=== PATIENT | male | born 2005 | race Caucasian/White ===

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

== ENCOUNTER 2025-09-08 21:52 | Emergency (ER) | payer SELFPAY ==
[2025-09-08 21:54] VITALS: BP 141/99; PULSE 80; RESP 16; TEMP 36.3; O2SAT 100
--- NOTE | 2025-09-08 22:00 | DI.CT_ITS ---
Exam(s) CT HEAD WO EXAM: CT HEAD WO CLINICAL HISTORY: visual hallucinations, fall yesterday. TECHNIQUE: Imaging Protocol: Axial computed tomography images with coronal and sagittal reformatted images were created and reviewed COMPARISON: CT CT HEAD CERV SPINE FACIAL WO from 11/10/2024 FINDINGS: There are no skull fractures. There is no fluid in the visualized paranasal sinuses. There is no evidence of intracranial hemorrhage, mass effect, or shift of midline structures. There are no extra-axial fluid collections. The ventricles are not enlarged or shifted and there is no blood within the ventricular system nor within the basal cisterns. IMPRESSION: No acute intracranial findings on this noninfused CT scan of the brain. RADIATION DOSE DELIVERED: 866.62mGy.cm Total DLP DATA REPOSITORY: All CT scans at this facility are submitted to the National Radiology Data Registry (NRDR) Dose Index Registry (DIR) with the [employer] (ACR). RADIATION OPTIMIZATION: All CT scans at this facility use at least one of these dose optimization techniques: automated exposure control; mA and/or kV adjustment per patient size (includes targeted exams where dose is matched to clinical indication); or iterative reconstruction.
--- NOTE | 2025-09-08 22:08 | ED.GENADUL_ITS ---
Discharge Plan Discharge Details Chief Complaint: PsychEval Clinical Impression: Visual hallucination, Depression with suicidal ideation Primary Care Provider: Jimy Headley ED Provider: Lucila Cheatham Home Meds and New Rx's Prescriptions: No Action escitalopram oxalate 20 mg tablet 10 mg PO DAILY HPI General Mode of arrival: ambulatory . Date/Time Provider Initiated Documentation: 09/08/25 21:52 . Limitations to Documentation: no limitations . Information obtained by: patient, family and old records reviewed . HPI Narrative: This is a 19-year-old male patient with a past medical history significant for anxiety and depression presenting for evaluation of visual hallucinations. The patient reports that he has had chronic suicidal ideations for the last several years, without any specific plan, intent, or history of attempts. 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 He states that he is hoping to get referred to a therapist or mental health provider, but has not yet been connected. Today, the patient reports that he was changing the baby's diaper, looked down at his hands, and thought that they were covered in blood. This was very distressing, he wondered if perhaps this could have been because he got a bloody nose or did not wash his hands, states that he tweaked out for a few moments and then realized that his hands were infected clean. During this event he did not have any situation where he heard voices or other noises that were not there, states that he has not ever had anything like this happen to him before, and the visual hallucinations are not persisting. The patient reports that he is sleeping normally as his partner does the nighttime feedings for their new baby. He states that yesterday he took a fall down some icy stairs, does not think he hit his head, did have some mild lower back pain which is much improved today. No recent fevers, chills, nor other localizing symptoms of illness. The patient vapes nicotine, denies alcohol or drug use. Related Data Home Medications ?Medication ?Instructions ?Recorded ?Confirmed escitalopram oxalate 20 mg tablet 10 mg PO DAILY 09/0809/08/25 Allergies Allergy/AdvReac Type Severity Reaction Status Date / Time chocolate AdvReac Intermediate Itching Verified 08/09/25 11:40 General Stated Complaint: PsychEval ESTELA: 3 Exam Narrative Exam Narrative: Gen: awake and alert, in no apparent distress. Appears well nourished. HEENT: PERRL, EOMs full and without nystagmus. External ears and nose normal, mucous membranes moist. Neck: Supple, full range of motion, no cervical spine tenderness or step-offs Lungs: No increased work of breathing, lung sounds clear and equal bilaterally without wheezes, rhonchi, or rales. CV: Heart with regular rate and rhythm, no murmurs auscultated. Strong and symmetrical radial pulses. Abdomen: Soft, nondistended MSK: No joint swelling, no redness. Full ROM without limitation, no external traumatic findings. No T or L-spine tenderness or step-offs Skin: No rashes or lesions to visualized skin. Normal color, warm, and dry. Neuro: Cranial nerves II-XII intact and symmetrical bilaterally. 5/5 strength in all muscle groups x4 extremities. No sensory deficits. Ambulates with steady gait. Psych: Endorses passive suicidal ideation, visual hallucinations but denies homicidal ideation, nor suicidal plan or intent. Demonstrates a linear thought process and goal-directed thinking, appropriate affect Course Vital Signs Vital signs: Vital Signs Temperature 36.3 C L 09/08/25 21:54 Pulse 80 09/08/25 21:54 Respiratory Rate 16 09/08/25 21:54 Blood Pressure 141/99 H 09/08/25 21:54 Pulse Oximetry 100 09/08/25 21:54 Temperature 36.3 C L 09/08/25 21:54 Temperature Source Tympanic 09/08/25 21:54 Pulse 80 09/08/25 21:54 Respiratory Rate 16 09/08/25 21:54 Blood Pressure 141/99 H 09/08/25 21:54 Blood Pressure Position Sitting 09/08/25 21:54 Pulse Oximetry 100 09/08/25 21:54 Oxygen Delivery Method Room Air 09/08/25 21:54 Oxygen Flow Rate 0 09/08/25 21:54 Medical Decision Making This is a 19-year-old male patient presenting for evaluation of visual hallucinations and passive suicidal ideation. My differential includes but is not limited to medical etiologies, certainly considered intracranial abnormality including hemorrhage, mass effect, no neurodeficits to suggest stroke, conside red skull fracture. No neurodeficits to suggest spinal cord injury, and my head to toe trauma examination does not reveal any other concerning traumatic injuries. Consider primary psychiatric disturbance, metabolic electrolyte derangement, kidney and liver injury, intoxication and withdrawal syndromes. We will obtain medical clearance examinations to include a CT head given the recent traumatic injury, and labs to include CBC, CMP, magnesium, ethyl alcohol, UDS and urinalysis. We will consult [facility] following medical clearance. - I signed out care of this patient to the oncoming provider prior to completion of medical clearance and evaluation by [facility]. The patient remained hemodynamically appropriate under my care. Lucila Cheatham MD [facility] All Active Problems (Updated 09/08/25 @ 22:24 by Lucila Cheatham MD) Depression with suicidal ideation (Acute) Visual hallucination (Acute) Anxiety (Chronic) per patient report. -hb Depression (Chronic) per patient report. -hb Family History (Updated 05/30/25 @ 16:16 by Iza Lin RN) Mother No problems noted. Father Cancer Brother No problems noted. Brother No problems noted. Brother No problems noted. Maternal Grandmother Alcohol use disorder Maternal Grandfather No problems noted. Paternal Grandmother Cancer Paternal Grandfather Blood clotting disorder Social History (Updated 06/21/25 @ 14:41 by Kenna Oliveira) Smoking/Tobacco Use Status: Never Smoking risk assessment performed?: Yes Alcohol Intake: never Substance use type: does not use Adopted: No Caregiver/Support person: No Household members: spouse Housing: apartment Number of Children: 1 Communication Needs: None Education Level: high school Do you need help understanding health information?: Never current occupation: [employer] Sexually active: Yes Do you think of yourself as: straight/heterosexual Current gender identity: male What is your relationship status?: living with partner How often do you talk on the phone with friends or family?: twice per week How often do you get together with friends or relatives?: once per week How often do you attend sabianism or orthodoxy services?: decline to answer Do you belong to any clubs or organized social groups?: no Panel score (0-1 are the most socially isolated patients): 2 What type of physical activity do you participate in: walking and weight lifting Duration: > 90 minutes/day Frequency: 5-6 times per week Special cam[place] needs: No Agree to transfusion: Yes Seatbelt use: always Helmet use: Yes Drive intox or ride w/intox pickup driver: No Working smoke detector in home: Yes Carbon monox detector in home: Yes Firearms in home: No Do you feel safe at home: Yes Do you feel safe in your relationship?: Yes Victim of physical abuse: No Victim of emotional abuse: No Victim of sexual abuse: No Would you like helpful sources: No
[2025-09-08 22:29] LABS: Abs Immature Grans 0.01 10^3/uL (0.0-0.06); HCT 47.7 % (40.0-50.0); HGB 16.2 g/dL (13.5-17.5); Immature Grans % 0.1 %; MCH 28.9 pg (27.0-33.0); MCHC 34.0 % (32.0-36.0); MCV 85 fL (80-95); MPV 9.2 fL (8.0-11.0); Platelet Count 311 10^3/uL (130-400); RBC 5.60 10^6/uL (4.36-5.78); RDW 12.6 % (11.8-14.1); RDW-SD 38.7 fL; WBC 7.68 10^3/uL (4.4-10.8)
--- NOTE | 2025-09-08 22:44 | W.EDPROG ---
Date of service: 09/08/25 Time of Service: 22:30 Medical Decision Making This patient was signed out to me. Please see previous notes for H&P and initial eval. In brief, 19yo M with hx depression presenting with new onset visual hallucination as well as chronic SI without plan or intent unchanged from baseline. No fevers, headache, or other symptoms to suggest encephalitis and no known toxic/drug exposures. Pending head CT and labs for medical clearance followed by [facility] evaluation. If medically cleared and no organic pathology identified, felt to be appropriate for safety plan home if [facility] is in agreement. Head CT independently reviewed; no evident mass or bleed on my view; radiology read with no acute intracranial abnormality. Labs reviewed as below, CBC reassuring with no leukocytosis or anemia, CMP with no actionable abnormalities, Mg normal, etoh negative, TSH slightly elevated with normal T4, UA normal, UDS negative. [facility] evaluated patient; safety plan made and plan for check in later in the morning. Patient and significant other at bedside feel comfortable with this plan and have no concerns. He demonstrates good insight and judgement. Given potential that this may be an escitalopram side effect, I advised him to halve his dose on Wednesday and discuss with his PCP on Wednesday regarding continuation/discontinuation/taper. Discharged home; discharge instructions and return precuations were reviewed with patient who verbalized understanding. All questions were answered and he is in full agreement with the plan. Lab Data Lab results reviewed: Yes I reviewed the patient's lab results. Labs: Laboratory Tests Range/Units 09/08/25 09/08/25 09/08/25 22:15 22:32 23:10 WBC (4.4-10.8) 10^3/uL 7.68 RBC (4.36-5.78) 10^6/uL 5.60 Hgb (13.5-17.5) g/dL 16.2 Hct (40.0-50.0) % 47.7 MCV (80-95) fL 85 MCH (27.0-33.0) pg 28.9 MCHC (32.0-36.0) % 34.0 RDW (11.8-14.1) % 12.6 Plt Count (130-400) 10^3/uL 311 MPV (8.0-11.0) fL 9.2 Immature Gran % % 0.1 Neutrophils % % 41.4 Lymphocytes % % 47.3 Monocytes % % 8.7 Eosinophils % % 1.6 Basophils % % 0.9 Nucleated RBC % (0.0-0.3) % 0.0 Absolute Neutrophils (1.2-6.7) 10^3/uL 3.18 Absolute Lymphocytes (1.2-3.4) 10^3/uL 3.63 H Absolute Monocytes (0.1-0.8) 10^3/uL 0.67 Absolute Eosinophils (0.0-0.7) 10^3/uL 0.12 Absolute Basophils (0.0-0.2) 10^3/uL 0.07 Sodium (136-145) mmol/L 143 Potassium (3.5-5.1) mmol/L 3.7 Chloride (98-107) mmol/L 106 Carbon Dioxide (20.0-31.0) mmol/L 29.3 Anion Gap (3-11) mmol/L 7.7 BUN (9-23) mg/dL 9 Creatinine (0.73-1.18) mg/dL 0.97 Est GFR (CKD-EPI 2020) (mL/min/1.73m2) 98.70 Glucose (74-106) mg/dL 89 Calcium (8.3-10.6) mg/dL 9.9 Magnesium (1.6-2.6) mg/dL 2.1 Total Bilirubin (0.2-1.2) mg/dL 0.50 AST (<34) U/L 28 ALT (10-49) U/L 41 Alkaline Phosphatase (46-116) U/L 82 Total Protein (5.7-8.2) g/dL 8.4 H Albumin (3.2-5.0) g/dL 5.3 H TSH (0.48-4.17) uIU/mL 4.20 H Free T4 (0.83-1.43) ng/mL 1.32 Urine Color (Yellow) Yellow Urine Clarity (Clear) Clear Urine pH (5-8) 6.5 Ur Specific [place] (1.005-1.025) 1.025 Urine Protein (Neg-Trace) mg/dL Negative Urine Ketones (Negative) mg/dL Negative Urine Blood (Negative) Negative Urine Nitrite (Negative) Negative Urine Bilirubin (Negative) Negative Urine Urobilinogen (Up to 0.2) mg/dL 0.2 Ur Leukocyte Esterase (Negative) Negative Urine Glucose (Negative) mg/dL Negative Urine Opiates Screen (Negative) Negative Urine Methadone Screen (Negative) Negative Ur Barbiturates Screen (Negative) Negative Ur Tricyclics Screen (Negative) Negative Ur Amphetamines Screen (Negative) Negative U Benzodiazepines Scrn (Negative) Negative Urine Cocaine Screen (Negative) Negative U Cannabinoids Screen (Negative) Negative Ethyl Alcohol (<3) mg/dL < 3.0 Add-On Test Request DONE Discharge Plan Disposition Patient Disposition: Home Condition: Good Discharge Details Clinical Impression: Visual hallucination, Depression with suicidal ideation Primary Care Provider: Jimy Headley ED Provider: Nalini Madera Home Meds and New Rx's Prescriptions: No Action escitalopram oxalate 20 mg tablet 10 mg PO DAILY Discharge Instructions Instructions: Suicide prevention Additional Instructions: Please make sure you check-in with [facility] tomorrow as scheduled. Call your primary care doctor in the morning to schedule an appointment for as soon as possible within the next 48 hours to followup on your visit here. At that visit please discuss your hallucinations, your suicidal ideation, and whether or not you should continue taking your lexapro. Until you are able to talk to them, take half of your usual dose (5mg). Return to the emergency department for new or worsening symptoms, including if you have more hallucinations, worsening thoughts of self harm, feel unsafe at home, develop a fever or headache or neck pain or vomiting, or if you have any other concerns. Stand Alone Forms: Portal Information
[2025-09-08 22:45] LABS: Magnesium 2.1 mg/dL (1.6-2.6)
[2025-09-08 22:46] LABS: ALT 41 U/L (10-49); AST 28 U/L (<34); Albumin 5.3 g/dL (3.2-5.0); Alkaline Phosphatase 82 U/L (46-116); Anion Gap 7.7 mmol/L (3-11); BUN 9 mg/dL (9-23); Bilirubin, Total 0.50 mg/dL (0.2-1.2); CO2 29.3 mmol/L (20.0-31.0); Calcium 9.9 mg/dL (8.3-10.6); Chloride 106 mmol/L (98-107); Glucose 89 mg/dL (74-106); Potassium 3.7 mmol/L (3.5-5.1); Sodium 143 mmol/L (136-145); Total Protein 8.4 g/dL (5.7-8.2)
--- NOTE | 2025-09-08 22:55 | DI.VRAD_ITS ---
PROCEDURE INFORMATION: Exam: CT Head Without Contrast Exam date and time: 09/08/2025 10:29 PM Age: 19 years old Clinical indication: Other: Visual hallucinations, fall yesterday TECHNIQUE: Imaging protocol: Computed tomography of the head without contrast. COMPARISON: CT HEAD CERV SPINE FACIAL WO 11/10/2024 10:37 PM FINDINGS: Brain: Normal. No hemorrhage. Unremarkable white matter. No mass effect. Cerebral ventricles: No ventriculomegaly. Paranasal sinuses: Visualized sinuses are unremarkable. No fluid levels. Mastoid air cells: Visualized mastoid air cells are well aerated. Bones: Unremarkable. No acute fracture. Soft tissues: Unremarkable. IMPRESSION: No acute intracranial abnormality. Dictated and Authenticated by: Indra Emerson MD. Orderin [facility]. Lex Gaytan MD
[2025-09-08 22:57] LABS: Lab Add On Test DONE
[2025-09-08 23:15] LABS: TSH (W/Ref FT4) 4.20 uIU/mL (0.48-4.17)
[2025-09-08 23:31] LABS: Glucose Negative (Negative)
[2025-09-08 23:44] LABS: Cannabinoids THC Negative (Negative)
[2025-09-09 01:15] VITALS: BP 160/88; PULSE 90; RESP 16; O2SAT 99
--- NOTE | 2025-09-09 02:33 | PDOC.MHCN_ITS ---
Date of service: 09/09/25 Time of Service: 00:05 PHQ-9 Over the last 2 weeks, how often have you been bothered by any of the following problems? 1. Little interest or pleasure in doing things: several days 2. Feeling down, depressed, or hopeless: nearly every day 3. Trouble falling or staying asleep, or sleeping too much: nearly every day 4. Feeling tired or having little energy: several days 5. Poor appetite or overeating: nearly every day 6. Feeling bad about yourself - or that you are a failure or have let yourself and your family down: nearly every day 7. Trouble concentrating on things, such as reading the newspaper or watching television: several days 8. Moving or speaking so slowly that other people could have noticed? - Or the opposite - being so fidgety or restless that you have been moving around a lot more than usual: more than half the days 9. Thoughts that you would be better off or of hurting yourself in some way: nearly every day Total score: 20 If you checked off any problems, how difficult have these problems made it for you to do your work, take care of things at home, or get along with other people?: somewhat difficult Source: Developed by Drs. Eligio Coats, Nayla Mayen, Garth Pop and colleagues, with an educational pat from [employer]. Suicide Severity Rate CSSRS Have you wished you were or wished you could go to sleep and not wake up?: Yes Have you actually had any thoughts of killing yourself?: Yes CSSRS2 Have you been thinking about how you might do this?: No Have you had these thoughts and had some intention of acting on them?: Yes Have you started to work out or worked out the details of how to kill yourself? Do you intend to carry out this plan?: No CSSRS3 Have you ever done anything, started to do anything or prepared to do anything to end your life?: No Screening Score Total Score: 4 Screening: Positive Mental Health Emergency Note Release [facility] release signed:: Yes Reason for Visit The client presented to the [facility] ED for visual hallucinations. The client is not known to [facility] or this clinician. The client self reports to never have been hospitalized in the past for their mental health. In the last 2 weeks has the pt presented for ES prior to today?: No Client Information Client is: New Well Housed: Yes Non Suicidal Self Injury Current: Yes, The client reports NSSI by punching hard surfaces in attempt to break his knuckles. History: No Safety Risk/Harm to Self or Others Current Ideation to Harm Self or Others: Yes to self. Intent: yes, has intent. Plan: no.does not have a plan. History of suicide attempt: No history of suicide attempt reported CALM/Risk Level Does risk to harm exist?: yes. Access to means: Yes. Types of Means: Other weapons and Medication. Details: The client reported having access to medications, SHARPS and ropes. . Counseling provided: No Risk: Low Risk Duty to warn indicated: No Asssessment/Mental Status Appearance: Well groomed Attitude: Cooperative and Friendly Behavior: Unremarkable Speech: Normal Affect: Cogruent with mood Mood: Other (The client reported their mood as impatient. ) Thought process: Goal directed Hallucinations: yes, Visual Delusions: No Attention: Unremarkable Perception: Not impaired Orientation: Fully orientated Memory: Intact Insight: Fair Judgement: Fair Neurovegetative Symptoms Sleep: No change Appetitie: Decrease Interests: Decrease Energy: Decrease Additional Issues: Assaultive/Threatening Behavior: No Medical Concerns: No Client engaged in active self harm w/weapon: No Threatening to run away: No Child reported abuse/neglect: No Voluntarily presenting for services: Yes Domestic violence is a concern: No Extreme Psychosis or extreme behavior is present: No Impression The client is a 19-year-old biological male who resides with his fianc? and son in [place], [place]. The client presents with a well groomed appearance and is seen sitting in their hospital bed. Affect appears to be congruent with mood. Speech is in normal range. Client is friendly and cooperative with this clinician; they report their mood as impatient. Thought process appears to be congruent with mood. The client denied auditory hallucinations. The client reports visual hallucinations of his hands covered in blood. There are no delusions observed by this clinician. Cognitive assessment reveals orientation to person, place and time. The client reports experiencing visual hallucinations for the first time tonight of his hands covered in blood. The client states he fell down the stairs yesterday and hit his head. The client stated he wanted to make sure him hitting his head was not the cause of his hallucinations. Per collateral report of [facility] nurse Yamileth the client reported passive SI and has been experiencing these thoughts for some time. The client reported SI with no plan and their intent rated a 1 out of 10. The client reports occasional NSSI by punching hard surfaces in attempt to break their knuckles. The client denied HI with no intent or plans. The client reports having access to medications, SHARPS and ropes. The client stated they would like a referral for individual therapy and to go home. The client engaged in a safety plan with this clinician. The client will check in with emergency services on 09/09/25 at 3pm and will follow up with their PCP around their medication and hallucinations. Plan/Disposition Recommended Disposition: Therapy. Plan: The client will check in with emergency services on 09/09/25 at 3pm and will follow up with their PCP around their medication and hallucinations. Reports/communication Outcome discussed with: ED/Personnel
--- NOTE | 2025-09-09 02:39 | [facility].SBSAFE ---
Date of service: 09/09/25 Time of Service: 00:55 Roberto-Brown Safety Plan Step 1: Warning signs 1.: I get snappy and irritable 2.: General laziness and lack of ambition 3.: Self isolation Step 2: Internal Coping Strategies Things I can do to take my mind off my problems without contacting another person: 1.: Listen to music 2.: Watch car content on youtube 3.: Go for a drive Step 3: People and Social Settings People and social settings that provide distraction: 1. Name: Estephania (fiance) 2. Name: Zohaib (son) 3. Place: [employer] Step 4: Assistance People whom I can ask for help during a crisis: 1. Name: Estephania (fiance) 2. Name: Umberto (friend) 3. Name: Pedro (brother) Step 5: Professionals/Agencies Professionals or agencies I can contact during a crisis: 1. Clinician/Agency Name: [facility] 1. 2. Clinician/Agency Name: Vee Mcintyre 2. 3. Local Emergency Department: [facility] [address] [place] [address] 4. [facility] ([facility]) Mobile Crisis Suicide Prevention Lifeline Phone: [phone] Step 6: Making the Environment Safer Making the environment safer (plan for lethal means safety): 1.: The client could not identify Copy to Patient/Family Provided a copy of the Roberto Brown Safety Plan to Patient/Family: Yes Roberto Velasco Copyright Roberto-Brown Safety Planning Intervention The Roberto-Brown Safety Plan is copyrighted by Joanne Mejia, PhD & Milton Velasco, PhD (2007, 2020). Individual use of the Roberto-Brown Safety Plan form is permitted. Written permission from the authors is required for any changes to this form or use of this form in the electronic medical record. Additional resources are available from www.suicidesafetyplan.com.
== END 2025-09-09 01:30 | disposition home or self-care (01) ==
PROVIDERS: Emergency Medicine; Emergency Provider Student in an Organized Health Care Education/Training Program; PCP Nurse Practitioner Family
DX: F32.A Depression, unspecified (principal); R44.1 Visual hallucinations; R45.851 Suicidal ideations
CPT/HCPCS: 00123; 80053; 80307; 96127; 99285; 70450; 80320; 81003; 83735; 84439; 84443; 85025; 99284